=== PATIENT | male | born 1970 | race Caucasian/White ===

== ENCOUNTER → 2016-11-13 | Outpatient (CLI) | payer OTHER ==
--- NOTE | 2016-11-14 06:06 | SPLIT NIGHT TECHNICIAN REPORT ---
[facility] Split Night Polysomnogram - Ceramic Engineering Professor Report Study date: 11/13/2016 Referring Physician: Rehana LYNN M.D. Name: MAGALYS JARQUINO Ceramic Engineering Professor: JEROME Good. Date of : 1970 Height: 46 years, Height 5' 8.5" Sex: Male Weight: 262 lbs Age: 46 Neck Circum: 17.5 in BMI: Medications: 39.25 LISINOPRIL 40 MG, HYDROCORTISONE 2.5% OINT Patient History 46 yr-old male here for a baseline/split study. He has a history of loud snoring, excessive daytime sleepiness, and witnessed apneas. His [place] scale is 14. The test was started on room air. ETCO2 testing was not utilized during this study. Room 1 Parameters Monitored NPSG: E1-M2, E2-M1, Fp1-M2, Fp2-M1, F3-M2, F4-M2, F4-M1, C3-M2, C4-M2, C4-M1, O1-M2, O2-M2, O2-M1, T3-M2, T4-M1, P3-M2, P4-M1, CHIN1, CHIN2, HR, EKG, Legs, PFLOW, SNOR, FLOW, CFLOW, Tidal Volume, THOR, ABDO, SpO2, PLTH, CPRESS, ETCO2 Wave, ETCO2, pH SLEEP SUMMARY DATA DIAGNOSTIC TREATMENT Lights Out: 9:59:17 PM 12:21:47 AM Lights On: 12:13:17 AM 5:31:17 AM Total Recording Time (TRT): 134.0 min. 309.0 min. Total Sleep Time (TST): 124.5 min. 263.5 min. NREM Time: 94.5 min. 148.0 min. REM Time: 30.0 min. 115.5 min. Sleep Period Time (SPT): 128.0 min. 297.5 min. Sleep Efficiency (SE): 93 % 85 % Sleep Latency: 6.0 min. 11.0 min. Arousal Index: 39.0 23.2 PAP Treatment Levels: 4, 8/4, 10/4, 11/6, 12/7, 14/7, 16/7, 18/8, 20/10, 22/12 * Optimal Pressure(s) SLEEP STAGING DATA DIAGNOSTIC TREATMENT Duration (min) TST % Duration (min) TST % Stage Wake: 9.5 min. -- 45.5 min. -- WASO: 3.5 min. -- 34.0 min. -- NREM: 94.5 min. 76 % 148.0 min. 56 % Stage N1: 17.5 min. 14 % 44.0 min. 17 % Stage N2: 77.0 min. 62 % 104.0 min. 39 % Stage N3: 0.0 min. 0 % 0.0 min. 0 % REM: 30.0 min. 24 % 115.5 min. 44 % POSITIONAL DATA Event Count Index Event Count Index Supine: 189 91.1 275 69.4 Supine NREM: 144 91.4 212 90.4 Supine REM: 45 90 63 39 Non-Supine: N/A N/A 6 13.1 Non-Supine NREM: N/A N/A 6 45.0 Non-Supine REM: N/A N/A 0 0.0 AROUSAL SUMMARY DATA: Event Count Index Event Count Index Apnea Arousals: 36 37.6 45 25.0 Hypopnea Arousals: 30 14.5 25 5.7 Snore Arousals: 11 5.3 16 3.6 PLM Arousals: 0 0.0 1 0.2 Non-Specific Arousals: 4 1.9 9 2.0 Total Arousals: 81 39.0 102 23.2 MYOCLONUS (PLM) Event Count Index Event Count Index PLM: 0 0.0 11 2.5 PLM AROUSAL: 0 0.0 1 0.2 PLM W/O AROUSAL 0 0.0 10 2.3 PLM W/RESP EVENT 0 0.0 3 0.0 MYOCLONUS (PLM) Event Count Index Event Count Index LM: 5 22.7 65 14.8 LM AROUSAL: 5 2.4 6 1.4 LM W/O AROUSAL LM W/RESP EVENT LM NON SPECIFIC 12 5.8 38 8.7 HEART RATE DATA DIAGNOSTIC TREATMENT Sleep (bpm): 67 67 REM (bpm): 69 91 NREM (bpm): 85 91 Tachycardia Count: 0 0 Tachycardia Duration: 0.00 0 Bradycardia Count: 0 0 Bradycardia Duration: 0.00 0 DIAGNOSTIC PORTION TREATMENT PORTION RESPIRATORY DATA Event Count Index Event Count Index AHI: -- 91.1 -- 63.5 RDI: -- 91.1 -- 64 Obstructive Apnea: 73 35.2 4 0.9 Central Apnea: 1 0.5 89 20.3 Mixed Apnea: 4 1.9 17 3.9 Hypopnea: 111 53.5 169 38.5 RERA: 0 0.0 2 0.5 Total Apneas: 78 37.6 110 25.0 RESPIRATORY DATA REM NREM SLEEP REM NREM SLEEP Supine Position: Obstructive Apneas: 6 67 73 0 4 4 Central Apneas: 0 1 1 22 64 86 Mixed Apneas: 3 1 4 1 16 17 Hypopneas: 36 75 111 39 127 166 RERA 0 0 0 1 1 2 Total Supine Events: 45 144 189 63 212 275 Supine AHI: 90 91.4 91.1 39 90.4 69.4 Supine RDI: 90.0 91.4 91.1 39.4 90.9 69.9 REM NREM SLEEP REM NREM SLEEP Non-Supine Position: Obstructive Apneas: N/A N/A N/A 0 0 0 Central Apneas: N/A N/A N/A 0 3 3 Mixed Apneas: N/A N/A N/A 0 0 0 Hypopneas: N/A N/A N/A 0 3 3 RERA N/A N/A N/A 0 0 0 Total Supine Events: N/A N/A N/A 0 6 6 Supine AHI: N/A N/A N/A 0.0 45.0 13.1 Supine RDI: N/A N/A N/A 0.0 45.0 13.1 OXYGEN DESTAURATION DATA: Event Count Index Event Count Index REM Desaturations: 51 102.0 112 58.2 NREM Desaturations: 171 108.6 232 94.1 SNORE DATA DIAGNOSTIC TREATMENT Snore Time: 24.7 12:32:47 AM Snore TST%: 7 15 Snore Arousal Count: 11 16 Snore Arousal Index: 5.3 3.6 Desaturation Event Summary: Minimum %SpO2 Event Count Mean/Min/Max Duration(sec.) Desaturation Index % Time In Bed > 90 493 17.8 / 6.0 / 56.3 125.8 53.6 86 - 90 65 19.6 / 7.5 / 46.0 32.2 27.6 81 - 85 31 19.7 / 7.3 / 47.3 62.8 6.7 76 - 80 24 15.7 / 6.0 / 32.8 121.8 2.7 71 - 75 30 17.4 / 4.8 / 35.0 156.5 2.6 66 - 70 18 14.6 / 4.5 / 32.5 73.7 3.3 61 - 65 7 17.3 / 8.8 / 32.5 38.6 2.5 56 - 60 0 N/A 0.0 0.9 51 - 55 0 N/A 0.0 0.0 < 50 0 N/A 0.0 0.0 OXYGEN SATURATION DATA DIAGNOSTIC TREATMENT SpO2 Mean Sleep: 81 % 91 % SpO2 Mean REM: 69 % 91 % SpO2 Mean NREM: 85 % 91 % SpO2 Minimum Sleep: 55 % 60 % SpO2 Minimum REM: 55 % 60 % SpO2 Minimum NREM: 57 % 80 % Time Below 90% (TST): 88.0 74.8 Time Below 88% (TST): 77.7 28.8 Total REM NREM Awake <50% 0.0 min. 0.0 min. 0.0 min. 0.0 min. 51 - 60% 4.2 min. 3.6 min. 0.6 min. 0.0 min. 61 - 70% 25.5 min. 16.4 min. 9.1 min. 0.1 min. 71 - 80% 23.3 min. 10.2 min. 12.7 min. 0.4 min. 81 - 90% 150.7 min. 40.7 min. 97.4 min. 12.7 min. 91 - 100% 235.2 min. 74.1 min. 121.1 min. 40.0 min. Average 89 86 89 93 Minimum SpO2 55 55 57 69 Desaturation Event Index 82.5 67.2 99.7 49.1 # Desat. Events below 89% 475 114 335 26 Time(%) with Saturation below 89% 32.8 12.0 19.1 1.7 Time(min.) with Saturation below 89% 144.1 52.8 83.9 7.4 Recording Ceramic Engineering Professor Comments: Mr. Jarquin slept in the supine position then his right side at 5 am. Cardiac arrhythmias were noted. They seemed to be centered around his ZAID activity only. They stopped almost altogether after CPAP was introduced and his O2 saturations were higher (please refer to the print outs). No bruxism noted. Snoring was noted and scored as a 5 on a scale of 1 through 5. (0=no snoring, 5=snoring loud enough to be heard through a closed door or down the reed way) At 12:20, he met specific Split-Night criteria during the diagnostic portion of this study. CPAP was initiated at +4 CMH2O. At this point, he could get to sleep long enough to start titrating for events due to many sleep onset centrals. He was then switched over to BiPAP at +8/4 CMH2O to try to get him to stay asleep. The pressure was then up-titrated to a level of +14/7 CMH2O. At this point, his central apneas returned so a rate of 16 BPM was added. After that he experienced constant hypopnea activity, and the pressure was up-titrated to a level of +22/12 CMH2O. An Eson 2 nasal mask size medium from [employer] was used during titration He did not wake up to use the restroom during the night. Mr. Jarquin stated that he slept a little better after the PAP treatment was started. The final report will be interpreted and signed by a sleep physician. The completed physician report will then be placed in the patient medical record. Therapy Event: Therapy (cm H20) 0 4 8/4 10/4 11/6 12/7 Total Time at Pressure (min.) 134.0 42.7 12.5 37.2 28.3 81.8 TST at Pressure (min.) 124.5 24.2 12.5 36.7 28.3 81.8 # Periods 1 1 1 1 1 1 Sleep Onset (min.) 6.0 11.0 0.0 0.0 0.0 0.0 REM Onset (min.) 70.0 N/A N/A 34.8 0.0 0.0 Sleep Efficiency % 92 56 100 98 100 100 Wakefulness (%) 7.1 43.3 0.0 1.3 0.0 0.0 Wakefulness (min.) 9.5 18.5 0.0 0.5 0.0 0.0 NREM 1 (%) 13.1 47.3 30.2 5.4 0.0 1.2 NREM 1 (min.) 17.5 20.2 3.8 2.0 0.0 1.0 NREM 2 (%) 57.5 9.4 69.8 86.7 0.0 19.0 NREM 2 (min.) 77.0 4.0 8.7 32.3 0.0 15.6 NREM 3 (%) 0.0 0.0 0.0 0.0 0.0 0.0 NREM 3 (min.) 0.0 0.0 0.0 0.0 0.0 0.0 REM (%) 22.4 0.0 0.0 6.6 100.0 79.8 REM (min.) 30.0 0.0 0.0 2.4 28.3 65.2 # Arousals 81 46 9 7 4 6 Arousal Index 39.0 113.9 43.3 11.4 8.5 4.4 # Snore 731 67 133 499 195 387 Snore Index 352.3 165.9 639.2 815.1 413.3 283.8 AHI 91.1 109.0 96.1 39.2 40.3 46.2 AHI Supine 91.1 109.0 96.1 39.2 40.3 46.2 AHI Non-Supine N/A N/A N/A N/A N/A N/A NREM AHI 91.4 109.0 96.1 38.5 N/A 79.7 REM AHI 90.0 N/A N/A 49.1 40.3 37.7 RDI 91.1 109.0 96.1 40.8 40.3 46.9 # Obstructive 73 0 0 4 0 0 # Central Ap 1 31 10 1 5 33 # Mixed 4 12 3 1 1 0 # Hypopneas 111 1 7 18 13 30 RERAS 0 0 0 1 0 1 Total Respiratory Events 189 44 20 25 19 64 Time Below SpO2 89.00% (min.) 83.4 4.1 3.7 7.9 8.2 6.6 Mean NREM SpO2 (%) 85 92 90 91 N/A 92 Mean REM SpO2 (%) 69 N/A N/A 89 89 92 Mean Sleep SpO2 (%) 81 92 90 91 89 92 Min NREM SpO2 (%) 57 81 80 85 N/A 81 Min REM SpO2 (%) 55 N/A N/A 70 60 82 Position Supine (min.) 124.5 24.2 12.5 36.7 28.3 81.8 Position Non-supine (min.) 0.0 0.0 0.0 0.0 0.0 0.0 LM Index Sleep 22.7 71.8 57.7 14.7 6.4 5.1 LM Index NREM 24.8 71.8 57.7 14.0 N/A 0.0 LM Index REM 16.0 N/A N/A 24.5 6.4 6.4 Mean Heart Rate (bpm) 67 69 70 71 68 66 Min Heart Rate (bpm) 33 57 59 55 44 53 Therapy (cm H20) 14 167 188 11/06 22/12 Total Time at Pressure (min.) 10.5 19.6 29.9 19.1 27.4 TST at Pressure (min.) 10.5 19.6 14.9 8.6 26.4 # Periods 1 1 1 1 1 Sleep Onset (min.) 0.0 0.0 0.0 0.0 0.0 REM Onset (min.) N/A N/A N/A N/A 6.9 Sleep Efficiency % 100 100 49 45 96 Wakefulness (%) 0.0 0.0 50.2 55.0 3.6 Wakefulness (min.) 0.0 0.0 15.0 10.5 1.0 NREM 1 (%) 0.0 0.0 20.0 42.4 10.6 NREM 1 (min.) 0.0 0.0 6.0 8.1 2.9 NREM 2 (%) 100.0 100.0 29.8 2.6 14.6 NREM 2 (min.) 10.5 19.6 8.9 0.5 4.0 NREM 3 (%) 0.0 0.0 0.0 0.0 0.0 NREM 3 (min.) 0.0 0.0 0.0 0.0 0.0 REM (%) 0.0 0.0 0.0 0.0 71.1 REM (min.) 0.0 0.0 0.0 0.0 19.5 # Arousals 0 0 11 13 6 Arousal Index 0.0 0.0 44.3 90.6 13.6 # Snore 28 15 16 9 5 Snore Index 160.8 46.0 64.4 62.8 11.4 AHI 126.3 125.8 112.7 90.6 11.4 AHI Supine 126.3 125.8 112.7 95.7 N/A AHI Non-Supine N/A N/A N/A 55.4 11.4 NREM AHI 126.3 125.8 112.7 90.6 43.4 REM AHI N/A N/A N/A N/A 0.0 RDI 126.3 125.8 112.7 90.6 11.4 # Obstructive 0 0 0 0 0 # Central Ap 2 0 2 2 3 # Mixed 0 0 0 0 0 # Hypopneas 20 41 26 11 2 RERAS 0 0 0 0 0 Total Respiratory Events 22 41 28 13 5 Time Below SpO2 89.00% (min.) 2.1 3.9 3.4 1.3 12.0 Mean NREM SpO2 (%) 92 91 92 93 89 Mean REM SpO2 (%) N/A N/A N/A N/A 89 Mean Sleep SpO2 (%) 92 91 92 93 89 Min NREM SpO2 (%) 85 86 80 82 81 Min REM SpO2 (%) N/A N/A N/A N/A 85 Position Supine (min.) 10.5 19.6 14.9 7.5 0.0 Position Non-supine (min.) 0.0 0.0 0.0 1.1 26.4 LM Index Sleep 0.0 3.1 16.1 55.8 6.8 LM Index NREM 0.0 3.1 16.1 55.8 8.7 LM Index REM N/A N/A N/A N/A 6.2 Mean Heart Rate (bpm) 66 67 65 60 63 Min Heart Rate (bpm) 60 60 52 54 53 CPAP REPORT Therapy Detail Time / Page # Comment CPAP 4 cm H2O Nasal Mask Flex Pressure Relief Humidifier on 12:20:51 AM / pg. 470 HE HAS BEEN ASLEEP FOR OVER 2 HOURS AND HIS AHI IS ABOVE 40. BiLevel 8/4 cm H2O Nasal Mask Flex Pressure Relief Humidifier on 1:04:31 AM / pg. 557 HE HAS BEEN HAVING MANY SLEEP ONSET CENTRAL APNEAS. IT IS PREVENTING HIM FROM GETTING AND STAYING ASLEEP. TRYING BIPAP FOR THE CENTRAL APNEAS BiLevel 10/4 cm H2O Nasal Mask Flex Pressure Relief Humidifier on 1:17:00 AM / pg. 582 INCREASED IPAP FOR HYPOPNEAS AND SNORING BiLevel 11/6 cm H2O Nasal Mask Flex Pressure Relief Humidifier on 1:54:44 AM / pg. 657 INCREASED IPAP FOR HYPOPNEAS AND INCREASED EPAP FOR APNEAS AND MIXED APNEAS BiLevel 12/7 cm H2O Nasal Mask Flex Pressure Relief Humidifier on 2:23:02 AM / pg. 714 INCREASED IPAP FOR MORE HYPOPEAS AND INCREASED EPAP FOR MORE MIXED APNEAS AND APNEAS BiLevel 14/7 cm H2O Nasal Mask Flex Pressure Relief Humidifier on 3:44:51 AM / pg. 878 INCREASED IPAP FOR HYPOPNEAS AND ADDED A RATE FOR CENTRAL APNEAS THAT REAPPEARED BiLevel 14/7 cm H2O, Rate 16 bpm Nasal Mask Flex Pressure Relief Humidifier on 3:46:01 AM / pg. 880 CENTRAL APNEAS REAPPEARED. ADDED A RATE FOR THE CENTRAL APNEAS BiLevel 16/7 cm H2O, Rate 16 bpm Nasal Mask Flex Pressure Relief Humidifier on 3:55:18 AM / pg. 899 CONSTANT HYPOPNEAS AFTER RATE WAS ADDED BiLevel 18/8 cm H2O, Rate 16 bpm Nasal Mask Flex Pressure Relief Humidifier on 4:14:52 AM / pg. 938 INCREASED IPAP FOR CONSTANT HYPOPNEAS SINCE THE RATE WAS ADDED AND INCREASED EPAP TO KEEP THE MAX PRESSURE DIFFERENTIAL OF 10CM BiLevel 20/10 cm H2O, Rate 16 bpm Nasal Mask Flex Pressure Relief Humidifier on 4:44:46 AM / pg. 997 INCREASED IPAP FOR CONSTANT HYPOPNEAS AFTER THE RATE WAS ADDED AND INCREASED EPAP TO KEEP THE MAX PRESSURE DIFFERENTAIL OF 10 CM BiLevel 22/12 cm H2O, Rate 16 bpm Nasal Mask Flex Pressure Relief Humidifier on 5:03:52 AM / pg. 1036 INCREASED IPAP FOR CONSTANT HYPOPNEAS AFTER ADDING THE RATE AND INCREASED EPAP TO KEEP THE MAX PRESSURE DIFFERENTIAL OF 10 CM
--- NOTE | 2016-11-20 07:48 | POLYSOMNOGRAPH REPORT ---
REFERRING PERSON: Dr. Delmar Begum. CANDY DECORATOR: Nohemi Puckett. Mr. Tenorio is a 46-year-old male sent for a split night sleep study. He has a history of loud snoring, excessive daytime sleepiness and witnessed apneas. His [place] Sleepiness Scale score on the evening of this study is 14. BMI is 39.25. Mr. Tenorio did in fact qualify for a split night sleep study. During observation, he had nearly constant events and very low oxygen saturations. He was observed for 124.5 minutes of sleep time. During that time, he had 14% N1 sleep, 62% N2 sleep, and 24% REM sleep. There were 81 cortical arousals from sleep. Four of these arousals were nonspecific, 11 were due to snoring and the remaining 66 were due to respiratory events. There were no periodic limb movements of sleep noted during observation. Oxygen saturations were low. Mean saturation was 81% with desaturations to 55% with a respiratory event. There were 73 obstructive apneas, 1 central apnea, and 4 mixed apneas. Additionally, there were 111 hypopneas for an apnea hypopnea index of 91.1 consistent with very severe sleep apnea. Therefore, at 12:20 a.m., this patient was started on CPAP therapy. He chose an Eson II nasal mask in a medium size by [employer] for his titration. Shortly after starting CPAP therapy at 4 treatment emergent central apneas were noted and he was switched to bilevel therapy. This improved central somewhat and he was titrated on a BIPAP pressure of 8/4 to 14/7. At 12/7 central apneas reappeared and when he was increased to 14/7 a backup rate was added which diminished central events greatly. However, hypopneic events continued and IPAP and EPAP were increased due to obstructive events. He was ultimately titrated to an inspiratory pressure 22 an expiratory pressure of 12. He was observed on this pressure for 26.4 minutes of sleep time. 19.5 of those minutes were spent in REM sleep; however, this was non-supine REM. AHI and RDI on this pressure was 11.4, but again, this patient was only observed on this pressure for 26.4 minutes. There were 3 central events and 2 hypopneic events on this pressure. IMPRESSION AND PLAN: Successful split night sleep study in this patient with very severe obstructive sleep apnea and what appears to be the development of complex sleep apnea with increasing positive airway pressure therapy. I recommend that this patient be started on BiPAP ST. I would set his inspiratory pressure at 22 and his expiratory pressure at 14 with a backup rate of 12. A download from his machine can be reviewed in 1 month both to check compliance as well as AHI and further pressure adjustments can occur at that time. Slightly increased EPAP may improve the hypopneic events that were noted on 22/12 and a slightly lower backup rate may be more comfortable for the patient.
== END | disposition home or self-care (01) ==
LOC: C.NEUR 20:00
PROVIDERS: ATTEND Family Medicine
DX: G47.33 Obstructive sleep apnea (adult) (pediatric) (principal)